=== PATIENT | female | born 1970 | race Hispanic/Latino ===

== ENCOUNTER 2020-04-03 19:46 | Emergency (ER) | payer OTHER ==
[2020-04-03] MEDS ORDERED: TETANUS & DIPHTHERIA TOX,ADULT 0.5 ML VIAL ONE (20:21)
[2020-04-03] MEDS ORDERED: HYDROCODONE/APAP 5/325 MG TAB ONE (20:40)
--- NOTE | 2020-04-03 20:50 | RAD REPORT ---
EXAM DESCRIPTION: RAD - Forearm Left - 04/03/2020 8:44 pm CLINICAL HISTORY: ANIMAL BITE Pain and swelling COMPARISON: No comparisons FINDINGS: Significant soft tissue swelling is seen about the distal forearm/ wrist region. No radiop aque body. No fracture identified.
[2020-04-03] MEDS ORDERED: LIDOCAINE 1% MPF 30 ML VIAL ONE (21:07)
--- NOTE | 2020-04-03 22:00 | ER ---
Nurse's Notes [facility] Name: Eileen Madrid Age: 50 yrs Sex: Female : 1970 Arrival Date: 04/03/2020 Time: 20:00 Bed 5 Private MD: Diagnosis: Bitten by dog;Left Forearm Lacerations Presentation: 04/03 20:12 Chief complaint: EMS states: 50 yr old female with a dog bite to the LT wrist area with ll2 4 puncture holes surrounding. Lac about 2 inches long with fatty tissue exposed. daughter at bedside to translate. Dog was a pit bull mix, with [place] [employer] on scene assessing situation with dog. 2mg of ketamine and 4mg of zofran administered in route. No allergies or home meds. Coronavirus screen: Client denies travel out of the [place] in the last 14 days. At this time, the client does not indicate any symptoms associated with coronavirus-19. Ebola Screen: Patient negative for fever greater than or equal to 101.5 degrees Fahrenheit, and additional compatible Ebola Virus Disease symptoms No symptoms or risks identified at this time. Initial Sepsis Screen: Does the patient meet any 2 criteria? No. Patient's initial sepsis screen is negative. Does the patient have a suspected source of infection? No. Patient's initial sepsis screen is negative. Risk Assessment: Do you want to hurt yourself or someone else? Patient reports no desire to harm self or others. Onset of symptoms was April 03, 2020. 20:12 Method Of Arrival: EMS: [facility] ll2 20:12 Acuity: MIHIR 3 ll2 Triage Assessment: 22:11 Bite description: bite by a dog, animal information: vaccination(s). General: Appears ll2 in no apparent distress. Behavior is calm, cooperative, appropriate for age. 22:13 Bite description: bite is from animal. ll2 22:16 Bite description: bite sustained to left arm and left wrist. ll2 [place]ER: 22:12 LMP N/A - Post-menopause ll2 Historical: - Allergies: 20:18 No Known Allergies; ll2 - Home Meds: 20:18 None [Active]; ll2 - PMHx: 20:18 None; ll2 - PSHx: 20:18 None; ll2 - Immunization history:: Adult Immunizations unknown. - Social history:: Smoking status: unknown. Screenin:10 Abuse screen: Denies threats or abuse. Nutritional screening: No deficits noted. ea Tuberculosis screening: No symptoms or risk factors identified. Fall Risk IV access (20 points). Assessment: 20:16 Reassessment: see triage assessment. Pain: Denies pain. Neuro: Level of Consciousness ll2 is awake, alert, obeys commands, Oriented to person, place, time, situation. Neuro: Cooky Packer are equal bilaterally Moves all extremities. Cardiovascular: Cardiovascular: Capillary refill < 3 seconds Patient's skin is warm and dry. Respiratory: Airway is patent Respiratory effort is even, unlabored, Respiratory pattern is regular, symmetrical. GI: No signs and/or symptoms were reported involving the gastrointestinal system. : No signs and/or symptoms were reported regarding the genitourinary system. EENT: No signs and/or symptoms were reported regarding the EENT system. Derm: Skin has skin tears on 2 in lac to lt wrist with 4 puncture holes to same wrist, fatty tissue exposed. Musculoskeletal: Circulation, motion, and sensation intact. Range of motion: intact in all extremities. 20:35 Reassessment: Patient and/or family updated on plan of care and expected duration. Pain ll2 level reassessed. Patient is alert, oriented x 3, equal unlabored respirations, skin warm/dry/pink. 22:11 Reassessment: Patient and/or family updated on plan of care and expected duration. Pain ll2 level reassessed. Patient is alert, oriented x 3, equal unlabored respirations, skin warm/dry/pink. wound covered with antibiotic and covered for protection. 22:13 Derm: Skin is pink, warm \T\ dry. ll2 Vital Signs: 20:12 BP 143 / 93; Pulse 86; Resp 18; Temp 99.2; Pulse Ox 98% on R/A; Pain 0/10; ll2 20:18 BP 143 / 93; Pulse 85; Resp 18; Temp 99.2; Pulse Ox 97% on R/A; Pain 0/10; ll2 21:00 BP 157 / 72; Pulse 88; Resp 16; Pulse Ox 98% on R/A; ll2 22:05 BP 119 / 65; Pulse 76; Resp 17; Pulse Ox 98% on R/A; ll2 ED Course: 20:00 Patient arrived in ED. ll2 20:01 Montez Velazco MD is Attending Physician. [facility] 20:02 Ria Goodson, CLAUS is Primary Nurse. ll2 20:11 Wound care: to laceration located on left wrist and palmar aspect of left forearm was ea cleaned with soap and water, dressed with 4X4s, Patient tolerated well. 20:16 Triage completed. ll2 20:20 Arm band placed on right wrist. Patient placed in an exam room, on a stretcher, on ea pulse oximetry. 20:35 Patient has correct armband on for positive identification. Bed in low position. Call ll2 light in reach. Side rails up X2. Adult w/ patient. 20:43 Forearm Left XRAY In Process Unspecified. EDMS 21:58 Dany Jennings MD is Referral Physician. [facility] 22:12 No provider procedures requiring assistance completed. IV discontinued, intact, ll2 bleeding controlled, No redness/swelling at site. Pressure dressing applied. 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 Exp: jb4 08/25/2022. Lot #: [id number]. } Route: IM; Site: right deltoid; 20:20 Follow up: Response: No adverse reaction ll2 20:28 Drug: Spraggs 5 mg-325 mg 1 tabs Route: PO; ll2 22:02 Follow up: Response: No adverse reaction ll2 21:54 Drug: Lidocaine (1 %) 1 application {Note: administered by provider .} Volume: 20 ml; ea Route: Infiltration; 22:03 Drug: Augmentin 500 mg Route: PO; ll2 22:16 Follow up: Response: No adverse reaction ll2 Outcome: 21:59 Discharge ordered by . 7 22:12 Discharged to home ambulatory. ll2 22:12 Condition: stable 22:12 Discharge instructions given to patient, family, Instructed on discharge instructions, follow up and referral plans. medication usage, Demonstrated understanding of instructions, follow-up care, medications, Prescriptions given X 2. 22:13 Patient left the ED. 2 Signatures: Dispatcher [employer] EDAR Ezequiel Deng RN RN jb4 Savannah Mcarthur RN RN ea [place]combe, Lacie, RN RN 2 Montez Velazco MD MD mh7
--- NOTE | 2020-04-03 22:01 | EDPHYS ---
Physician Documentation [facility] Name: Eileen Madrid Age: 50 yrs Sex: Female : 1970 Arrival Date: 04/03/2020 Time: 20:00 Bed 5 Private MD: ED Physician Montez Velazco HPI: 04/03 20:14 This 50 yrs old Female presents to ER via Unassigned with complaints of Animal Bite. mh7 20:14 The patient was bitten on the palmar aspect of left forearm, by a dog, for an unknown mh7 reason, on a street or driveway. Onset: The symptoms/episode began/occurred just prior to arrival, today. Animal information: The animal was reported to appear healthy. Animal's vaccinations are up to date. Animal control has been notified, per information patient received from animal control. Secondary to the bite the patient reports a laceration. Secondary to the bite the patient reports a laceration, that is deep, 4 cm(s), multiple puncture wounds, that are superficial, the largest being 1 cm(s). Associated signs and symptoms: Pertinent positives: pain at site, tenderness, Pertinent negatives: bony tenderness, erythema at site, fever, fluctuance, loss of consciousness, motor deficit, numbness distal to wound, suspected foreign body, swelling at site. Severity of symptoms: At their worst the symptoms were moderate, earlier today, in the emergency department the symptoms are unchanged. [employer]: 22:12 LMP N/A - Post-menopause ll2 Historical: - Allergies: 20:18 No Known Allergies; ll2 - Home Meds: 20:18 None [Active]; ll2 - PMHx: 20:18 None; ll2 - PSHx: 20:18 None; ll2 - Immunization history:: Adult Immunizations unknown. - Social history:: Smoking status: unknown. ROS: 20:14 Constitutional: Negative for fever, chills, and weight loss, Eyes: Negative for injury, mh7 pain, redness, and discharge, ENT: Negative for injury, pain, and discharge, Neck: Negative for injury, pain, and swelling, Cardiovascular: Negative for chest pain, palpitations, and edema, Respiratory: Negative for shortness of breath, cough, wheezing, and pleuritic chest pain, Abdomen/GI: Negative for abdominal pain, nausea, vomiting, diarrhea, and constipation, Back: Negative for injury and pain, : Negative for injury, bleeding, discharge, and swelling, Neuro: Negative for headache, weakness, numbness, tingling, and seizure, Psych: Negative for depression, anxiety, suicide ideation, homicidal ideation, and hallucinations, Allergy/Immunology: Negative for hives, rash, and allergies, Endocrine: Negative for neck swelling, polydipsia, polyuria, polyphagia, and marked weight changes, Hematologic/Lymphatic: Negative for swollen nodes, abnormal bleeding, and unusual bruising. Exam: 20:14 Constitutional: This is a well developed, well nourished patient who is awake, alert, mh7 and in no acute distress. Head/Face: Normocephalic, atraumatic. Eyes: Pupils equal round and reactive to light, extra-ocular motions intact. Lids and lashes normal. Conjunctiva and sclera are non-icteric and not injected. Cornea within normal limits. Periorbital areas with no swelling, redness, or edema. Neck: Trachea midline, no thyromegaly or masses palpated, and no cervical lymphadenopathy. Supple, full range of motion without nuchal rigidity, or vertebral point tenderness. No Meningismus. Chest/axilla: Normal chest wall appearance and motion. Nontender with no deformity. No lesions are appreciated. Cardiovascular: Regular rate and rhythm with a normal S1 and S2. No gallops, murmurs, or rubs. Normal PMI, no JVD. No pulse deficits. Respiratory: Lungs have equal breath sounds bilaterally, clear to auscultation and percussion. No rales, rhonchi or wheezes noted. No increased work of breathing, no retractions or nasal flaring. Abdomen/GI: Soft, non-tender, with normal bowel sounds. No distension or tympany. No guarding or rebound. No evidence of tenderness throughout. Back: No spinal tenderness. No costovertebral tenderness. Full range of motion. Neuro: Awake and alert, GCS 15, oriented to person, place, time, and situation. Cranial nerves II-XII grossly intact. Motor strength 5/5 in all extremities. Sensory grossly intact. Cerebellar exam normal. Normal gait. Psych: Awake, alert, with orientation to person, place and time. Behavior, mood, and affect are within normal limits. 21:49 Musculoskeletal/extremity: Extremities: noted in the palmar aspect of left forearm and mh7 left wrist: laceration, ROM: intact in all extremities, Circulation is intact in all extremities. Pulses: are normal with no appreciated deficits, Perfusion: the patient is normally perfused throughout, Perfusion: the extremity is normally perfused throughout, Edema, is not appreciated, Sensation intact. Compartment Syndrome exam of affected extremity: is normal. no numbness, no tingling, no sensation deficit, no palor, no weak pulses, Joints: All joints appear normal with full range of motion. Tendon exam: specific tendon testing normal through active and passive range of motion 21:49 Skin: injury, laceration(s), the wound is approximately 4.5 cm(s), with a depth of 0.5 cm(s), of the Palmar aspect left distal forearm, the second wound is approximately 1.0 cm(s), with a depth of 0.5 cm(s), of the left distal forearm, that can be described as no foreign body, irregular, puncture(s), that are superficial, of the left wrist. distal forearm. Vital Signs: 20:12 BP 143 / 93; Pulse 86; Resp 18; Temp 99.2; Pulse Ox 98% on R/A; Pain 0/10; ll2 20:18 BP 143 / 93; Pulse 85; Resp 18; Temp 99.2; Pulse Ox 97% on R/A; Pain 0/10; ll2 21:00 BP 157 / 72; Pulse 88; Resp 16; Pulse Ox 98% on R/A; ll2 22:05 BP 119 / 65; Pulse 76; Resp 17; Pulse Ox 98% on R/A; ll2 Laceration: 21:49 Wound Repair of 4.5cm ( 1.8in ) subcutaneous laceration to palmar aspect of left mh7 forearm and left wrist. Irregularly shaped.. Distal neuro/vascular/tendon intact. Anesthesia: Local anesthetic administered with 6 mls of 1% lidocaine. Wound prep: Extensive cleansing with betadine by wa, Copious irrigation. Skin closed with 9 3-0 Prolene using simple sutures and sterile technique. Skin closed with 2 3-0 Prolene. Dressed with Bacitracin, 4x4's, non-adherent dressing. Patient tolerated well. MDM: 20:05 Patient medically screened. [facility] 21:49 Differential diagnosis: superficial laceration, tendon injury, vascular injury, rabies, mh7 cellulitis. Rabies Status: Rabies immunization is not indicated. Data reviewed: vital signs, nurses notes, EMS record. Data interpreted: Pulse oximetry: on room air is 97 %. Interpretation: normal. Counseling: I had a detailed discussion with the patient and/or guardian regarding: the historical points, exam findings, and any diagnostic results supporting the discharge/admit diagnosis, the presence of at least one elevated blood pressure reading (>120/80) during this emergency department visit, radiology results, the need for outpatient follow up, to return to the emergency department if symptoms worsen or persist or if there are any questions or concerns that arise at home. Response to treatment: the patient's symptoms have markedly improved after treatment. Special discussion: I discussed in detail with the patient the higher chance of wound infection based on his presenting history. ED course: Patient reports that the dog's farm owner operator told her that the animal's shots were up to date including rabies vaccination.. 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 Exp: jb4 08/25/2022. Lot #: [id number]. } Route: IM; Site: right deltoid; 20:20 Follow up: Response: No adverse reaction ll2 20:28 Drug: Goff 5 mg-325 mg 1 tabs Route: PO; ll2 22:02 Follow up: Response: No adverse reaction ll2 21:54 Drug: Lidocaine (1 %) 1 application {Note: administered by provider .} Volume: 20 ml; ea Route: Infiltration; 22:03 Drug: Augmentin 500 mg Route: PO; ll2 22:16 Follow up: Response: No adverse reaction ll2 Disposition: 04/03/20 21:59 Discharged to Home. Impression: Bitten by dog, Left Forearm Lacerations. - Condition is Stable. - Discharge Instructions: Animal Bite, [id number], Laceration Care, Adult, [id number]. - Prescriptions for Augmentin 500- 125 mg Oral Tablet - take 1 tablet by ORAL route every 8 hours for 10 days; 30 tablet. Tylenol- Codeine #3 300-30 mg Oral Tablet - take 2 tablet by ORAL route every 6 hours As needed; 30 tablet. - Medication Reconciliation Form, Thank You Letter, Antibiotic Education, Prescription Opioid Use form. - Follow up: Private Physician; When: 1 - 2 days; Reason: Wound Recheck, Worsening of condition, Recheck today's complaints, Continuance of care, Re-evaluation by your physician. Follow up: Emergency Department; When: 1 - 2 days; Reason: Wound Recheck, Worsening of condition. Follow up: Dany Jennings MD; When: 1 - 2 days; Reason: Wound Recheck, Worsening of condition, Recheck today's complaints. - Problem is new. - Symptoms have improved. Signatures: Dispatcher [employer] EDMS Ezequiel Deng RN RN jb4 Savannah Mcarthur RN RN Ria Larsen RN RN ll2 Montez Velazco MD MD mh7 Corrections: (The following items were deleted from the chart) 22:13 21:59 04/03/2020 21:59 Discharged to Home. Impression: Bitten by dog; Left Forearm ll2 Lacerations. Condition is Stable. Forms are Medication Reconciliation Form, Thank You Letter, Antibiotic Education, Prescription Opioid Use. Follow up: Private Physician; When: 1 - 2 days; Reason: Wound Recheck, Worsening of condition, Recheck today's complaints, Continuance of care, Re-evaluation by your physician. Follow up: Emergency Department; When: 1 - 2 days; Reason: Wound Recheck, Worsening of condition. Follow up: Dany Jennings; When: 1 - 2 days; Reason: Wound Recheck, Worsening of condition, Recheck today's complaints. Problem is new. Symptoms have improved. mh7
[2020-04-03] MEDS ORDERED: AMOX/K CLAV 875 MG TAB ONE (22:11)
[2020-04-03 23:21] VITALS: BP 143/93; TEMP 99.2
[2020-04-03 23:23] VITALS: O2SAT 97
== END 2020-04-03 22:13 | disposition home or self-care (01) ==
LOC: ER 19:46
PROC: 0JQH0ZZ Repair Left Lower Arm Subcutaneous Tissue and Fascia, Open Approach (ICD-10-PCS; principal; 2020-04-03)
DX: S51.812A Laceration without foreign body of left forearm, initial encounter (principal); W54.0XXA Bitten by dog, initial encounter; Y93.9 Activity, unspecified; Y92.89 Other specified places as the place of occurrence of the external cause; Z23 Encounter for immunization
CPT/HCPCS: 90471; 90714; 99284